=== PATIENT | female | born 1990 | race Two or more races ===

== ENCOUNTER 2020-08-14 01:55 | Emergency (ER) | payer MEDICAID, OTHER ==
[~2020-08-14] VITALS: Ht 154.9 cm; Wt 63.5 kg
[2020-08-14] MEDS ORDERED: cefTRIAXone SOD 1,000 MG VL IM ONE (05:45)
[2020-08-14] MEDS ORDERED: TETANUS-DIPTH-ACEL PERTUSSIS 0.5ML SYR Tdap IM ONE (05:45)
[2020-08-14 05:59] VITALS: BP 138/93
[2020-08-14] MEDS ORDERED: ACETAMINOPHEN 325 MG TAB PO ONE (06:45)
== END 2020-08-14 07:12 | disposition home or self-care (01) ==
LOC: ER 01:57
DX: S01.312A Laceration without foreign body of left ear, initial encounter (principal); X58.XXXA Exposure to other specified factors, initial encounter; Y93.89 Activity, other specified; Y92.89 Other specified places as the place of occurrence of the external cause; Y99.8 Other external cause status
CPT/HCPCS: 90471; 90715; 96372; 99284; J0696

== ENCOUNTER 2020-12-18 10:05 | Emergency (ER) | payer OTHER ==
[~2020-12-18] VITALS: Ht 154.9 cm; Wt 63.5 kg
[2020-12-18 10:53] VITALS: BP 114/79
[2020-12-18] MEDS ORDERED: IBUPROFEN 800 MG TAB PO ONE (11:15)
== END 2020-12-18 11:42 | disposition home or self-care (01) ==
LOC: ER 10:05
DX: S62.337A Displaced fracture of neck of fifth metacarpal bone, left hand, initial encounter for closed fracture (principal); W22.8XXA Striking against or struck by other objects, initial encounter; Y93.89 Activity, other specified; Y92.89 Other specified places as the place of occurrence of the external cause; Y99.8 Other external cause status
CPT/HCPCS: 29125; 73130

== ENCOUNTER 2021-02-18 21:09 | Emergency (ER) | payer OTHER ==
[~2021-02-18] VITALS: Ht 154.9 cm; Wt 65.8 kg
[2021-02-19 04:24] VITALS: BP 146/94
== END 2021-02-19 05:03 | disposition home or self-care (01) ==
LOC: ER 21:11
DX: S62.337A Displaced fracture of neck of fifth metacarpal bone, left hand, initial encounter for closed fracture (principal); W22.8XXA Striking against or struck by other objects, initial encounter; Y93.89 Activity, other specified; Y92.89 Other specified places as the place of occurrence of the external cause; Y99.8 Other external cause status
CPT/HCPCS: 29125; 73130